=== PATIENT | male | born 1965 | race Caucasian/White ===

== ENCOUNTER 2022-08-08 16:31 | Emergency (ER) | payer OTHER, MEDICAID, SELFPAY ==
[2022-08-08 16:44] VITALS: BP 176/97; PULSE 88; RESP 20; TEMP 37; O2SAT 97; BMI 34.0
--- NOTE | 2022-08-08 18:15 | ED_ITS ---
HPI - Skin/Abscess/Foreign Bdy <Homero Muro PA-C - Last Filed: 08/08/22 19:25> General Chief complaint: Skin/Abscess/Foreign Body Stated complaint: something in neck gland, sick smell Time Seen by Provider: 08/08/22 17:34 Source: patient Mode of arrival: Ambulatory Limitations: no limitations History of Present Illness HPI narrative: This is a 56-year-old male presents emergency department due to a week history of a sore throat as well as a ?infected gland?. States that he smells some abnormal smells coming from his throat. Denies any difficulty breathing or swallowing. Denies any fevers, nausea, vomiting, or any other systemic symptoms. No other upper respiratory infectious symptoms. Related Data Home Medications Medication Instructions Recorded Confirmed . (No Home Medications) ##0 06/22/10 Previous Rx's Medication Instructions Recorded dexamethasone 4 mg tablet 4 mg PO DAILY #3 tabs 08/08/22 Allergies Allergy/AdvReac Type Severity Reaction Status Date / Time INGREDIENT: NKDA - NO KNOWN Allergy Unknown Uncoded 07/10/17 11:44 DRUG ALLERGIES Review of Systems <BROOKS Nieto Last Filed: 08/08/22 19:25> Review of Systems Narrative: GENERAL: Denies chills, fatigue, malaise, fever, sweats. HEENT: Sore throat, Denies sinus pain, ear pain,, difficulty swallowing, dizziness. RESPIRATORY: Denies dyspnea, cough, wheezing, hemoptysis, sputum. CARDIOVASCULAR: Denies chest pain, palpitations, orthopnea, edema, GASTROINTESTINAL: Denies nausea, vomiting, abdominal pain, diarrhea, constipation, melena. : Denies dysuria, frequency, incontinence, hematuria, urinary retention. MUSCULOSKELETAL: denies weakness, joint pain, or bony pain SKIN: Denies rash, skin lesions, or other NEUROLOGIC: Denies weakness, headache, numbness, change in speech, confusion, seizures, incoordination. PSYCHIATRIC: No concerning psychosocial issues. 12 point review of systems is negative except for those stated above Patient History <BROOKS Nieto Last Filed: 08/08/22 19:25> Social History Smoking Status: Former smoker Smoking Status: Former smoker Exam <BROOKS Nieto Last Filed: 08/08/22 19:25> Narrative Exam Narrative: GENERAL: Well-developed patient, in mild distress. HEAD: Atraumatic. Normocephalic. EYES: Pupils equal round and reactive. Extraocular motions intact. No scleral icterus. No injection or drainage. ENT: Nose without bleeding, purulent drainage. Erythematous posterior oropharynx, tonsillar exudate on right tonsil. Mild bilateral tonsillar edema. Uvula midline. NECK: Trachea midline. Non tender CARDIOVASCULAR: Regular rate and rhythm without murmurs, gallops, or rubs. RESPIRATORY: Clear to auscultation. Breath sounds equal bilaterally. No wheezes, rales, or rhonchi. GASTROINTESTINAL: Abdomen soft, non-tender, nondistended. EXTREMITIES: No edema or joint tenderness. BACK: Nontender without deformity or crepitance. No flank tenderness. NEURO: AOx3. SKIN: No rash or erythema of visible areas Initial Vital Signs Initial Vital Signs: Vital Signs Temperature 98.6 F 08/08/22 16:44 Pulse Rate 88 08/08/22 16:44 Respiratory Rate 20 08/08/22 16:44 Blood Pressure 176/97 H 08/08/22 16:44 Pulse Oximetry 97 08/08/22 16:44 Oxygen Delivery Method Room Air 08/08/22 16:44 <Silvio Ortega MD - Last Filed: 08/16/22 03:29> Initial Vital Signs Initial Vital Signs: Vital Signs Temperature 98.6 F 08/08/22 16:44 Pulse Rate 88 08/08/22 16:44 Respiratory Rate 20 08/08/22 16:44 Blood Pressure 176/97 H 08/08/22 16:44 Pulse Oximetry 97 08/08/22 16:44 Oxygen Delivery Method Room Air 08/08/22 16:44 Course <Homero Muro PA-C - Last Filed: 08/08/22 19:25> Orders Ordered: ED Orders 08/08/22 18:20 Strep Grp A by PCR Rapid Stat 08/08/22 18:49 Throat Culture Stat Vital Signs Vital signs: Vital Signs - 8 hr 08/08/22 16:44 Temperature 98.6 F Pulse Rate 88 Respiratory Rate 20 Blood Pressure 176/97 H Pulse Oximetry 97 Oxygen Delivery Method Room Air <Silvio Ortega MD - Last Filed: 08/16/22 03:29> Orders Ordered: ED Orders 08/08/22 18:20 Strep Grp A by PCR Rapid Stat 08/08/22 18:49 Throat Culture Stat Vital Signs Vital signs: Vital Signs - 8 hr 08/08/22 16:44 Temperature 98.6 F Pulse Rate 88 Respiratory Rate 20 Blood Pressure 176/97 H Pulse Oximetry 97 Oxygen Delivery Method Room Air MDM - Skin/Abscess/Foreign Bdy <Homero Muro PA-C - Last Filed: 08/08/22 19:25> Lab Data Labs: Lab Results 08/08/22 Range/Units 18:20 Group A Strep (PCR) Negative (Negative) MDM Narrative Medical decision making narrative: MDM * differential diagnosis includes but not limited to viral pharyngitis, bacterial pharyngitis, peritonsillar abscess * Prior records reviewed: Patient has not been here for similar complaints in the past. * My lab interpretation: Rapid strep negative * My imgaing interpretation: None obtained * Clinical Decision Rules/Scores evaluated: None * Independent discussions with: None ED Course: This is a 56-year-old male presents to the emergency department due to a ?infected gland?. On exam it appears he has a tonsillar exudate to the right tonsil which is what he was describing. Denies any difficulty breathing or swallowing. He is not had any systemic fevers or any other symptoms. Low concern for acute unilateral peritonsillar abscess. Rapid strep was negative. Due to the erythema and tonsillar exudate throat culture was also ordered. Will recommend symptomatic treatment and oral dexamethasone for symptomatic relief. Shared Decision Making: Discussed plan with the patient who is comfortable with the plan. Social Considerations: None Disposition: Discharged to home <Silvio Ortega MD - Last Filed: 08/16/22 03:29> Lab Data Labs: Lab Results 08/08/22 Range/Units 18:20 Group A Strep (PCR) Negative (Negative) Discharge Plan Departure Patient Disposition: Home Clinical Impression: Pharyngitis Activity Restrictions/Additional Instructions: Thank you for coming to the [facility] Emergency Department today. Your strep test was negative. We have also taken a culture which should grow any bacteria if this is a bacterial infection that would need treatment. You will be called with the culture results if they come back positive. Please take medication as prescribed as this may help with your symptoms. I also recommend Tylenol as needed for any discomfort or fevers as well as warm salt-water gargles. I sent your medications to [facility] in [place]. I hope you feel better soon. Prescriptions: New dexamethasone 4 mg tablet 4 mg PO DAILY Qty: 3 0RF No Action . (No Home Medications) Qty: 0 Referrals: Marie Garcia [employer] [Primary Care Provider] - Stand Alone Forms: Patient Portal/API <Silvio Ortega MD - Last Filed: 08/16/22 03:29> Cosign ED Attending Cosignature Attestation: I was immediately available in the department for consultation. ?This documentation has been reviewed and I agree with assessment and plan. Supervised by Silvio Ortega MD
[2022-08-08 18:42] LABS: Strep Grp A by PCR Rapid Negative (Negative)
[2022-08-08 19:20] VITALS: BP 154/94; PULSE 67; O2SAT 100
--- NOTE | 2022-08-08 19:28 | PC.NURSE ---
Pt states for the past 2 months hes noticed a lump on the R side of his neck and a terrible taste/smell coming from his throat. Pt states he has had an infection before that drained.
== END 2022-08-08 19:25 | disposition home or self-care (01) ==
PROVIDERS: Emergency Provider Physician Assistant Medical; PCP Nurse Practitioner Family
DX: J02.9 Acute pharyngitis, unspecified (principal); Z87.891 Personal history of nicotine dependence
CPT/HCPCS: 87070; 87651; 99282

== ENCOUNTER 2024-05-29 16:34 | Emergency (ER) | payer OTHER, SELFPAY ==
[2024-05-29 16:40] VITALS: BP 136/69; PULSE 74; RESP 15; TEMP 36.6; O2SAT 96; BMI 35.4
--- NOTE | 2024-05-29 17:07 | ED_ITS ---
HPI - URI/Sore Throat <Liyah Moran PA-C - Last Filed: 05/29/24 19:44> General Chief Complaint: Upper Respiratory Symptoms Stated Complaint: SOB, coughing x 21days Time Seen by Provider: 05/29/24 17:01 Source: patient Mode of arrival: Ambulatory History of Present Illness HPI Narrative: Mr. Rivera is a pleasant 58-year-old gentleman with a past medical history of hypertension, former smoker, cholecystectomy who presents to the emergency department with his grandson who is also checked in as a patient for cough x3 weeks. Patient reports that his grandson got him sick 3 weeks ago and he was having fever congestion sore throat at that time however all of the symptoms have improved but he continues to have an aggressive lingering cough. States his cough is starting to make his back left ribs extremely sore every time he coughs or presses on the area. States that he has a history of walking pneumonia. He denies chest pain, shortness of breath, abdominal pain, nausea, vomiting, diarrhea. No medications prior to arrival. Related Data Home Medications Medication Instructions Recorded Confirmed . (No Home Medications) ##0 06/22/10 Previous Rx's Medication Instructions Recorded dexamethasone 4 mg tablet 4 mg PO DAILY #3 tabs 08/08/22 benzonatate 200 mg capsule 200 mg PO BID-TID PRN cough #20 05/29/24 caps lidocaine 5 % topical patch 1 patch topical DAILY #15 ea 05/29/24 (Lidoderm) Allergies Allergy/AdvReac Type Severity Reaction Status Date / Time No Known Drug Allergies Allergy Verified 05/29/24 16:47 Review of Systems <Liyah Moran PA-C - Last Filed: 05/29/24 19:44> Review of Systems ROS Unobtainable: All systems reviewed & are unremarkable except as noted in HPI and below Patient History <Liyah Moran PA-C - Last Filed: 05/29/24 19:44> Social History Smoking Status: Former smoker Smoking Status: Former smoker Exam <Liyah Moran PA-C - Last Filed: 05/29/24 19:44> Narrative Exam Narrative: GENERAL: 58 year old patient appears stated age. Well-developed patient, in no acute distress. HEAD: Atraumatic. Normocephalic. EYES: No scleral icterus. No injection or drainage. ENT: Nose without bleeding, purulent drainage. Throat without erythema, tonsillar hypertrophy or exudate. Airway patent. NECK: Trachea midline. Cervical ROM intact. CARDIOVASCULAR: Regular rate and rhythm. RESPIRATORY: ?Frequent coarse cough. Nonlabored respirations. ?Speaking in clear, full sentences. ?Clear to auscultation. Breath sounds equal bilaterally. No wheezes, rales, or rhonchi. ? EXTREMITIES: No edema or joint tenderness. BACK: Tenderness to palpation of left lateral ribs. NEURO: AOx3. ?Clear speech. ?Moves all 4 extremities appropriately. SKIN: No rash or erythema of visible areas Initial Vital Signs Initial Vital Signs: Vital Signs Temperature 97.9 F 05/29/24 16:40 Pulse Rate 74 05/29/24 16:40 Respiratory Rate 15 05/29/24 16:40 Blood Pressure 136/69 05/29/24 16:40 Pulse Oximetry 96 05/29/24 16:40 Oxygen Delivery Method Room Air 05/29/24 16:40 <Fareed Whitmore MD - Last Filed: 05/30/24 05:00> Initial Vital Signs Initial Vital Signs: Vital Signs Temperature 97.9 F 05/29/24 16:40 Pulse Rate 74 05/29/24 16:40 Respiratory Rate 15 05/29/24 16:40 Blood Pressure 136/69 05/29/24 16:40 Pulse Oximetry 96 05/29/24 16:40 Oxygen Delivery Method Room Air 05/29/24 16:40 Course <Liyah Moran PA-C - Last Filed: 05/29/24 19:44> Orders Ordered: Discontinued Medications Acetaminophen (Acetaminophen 325 Mg Tablet) 975 mg PO NOW ONE Stop: 05/29/24 17:21 Last Admin: 05/29/24 17:34 Dose: 975 mg Documented By: ES Benzonatate (Benzonatate 100 Mg Capsule) 200 mg PO NOW ONE Stop: 05/29/24 17:21 Last Admin: 05/29/24 17:35 Dose: 200 mg Documented By: ES Ibuprofen (Ibuprofen 400 Mg Tablet) 400 mg PO NOW ONE Stop: 05/29/24 17:21 Last Admin: 05/29/24 17:34 Dose: 400 mg Documented By: ES Vital Signs Vital signs: Vital Signs - 8 hr 05/29/24 16:40 Temperature 97.9 F Pulse Rate 74 Respiratory Rate 15 Blood Pressure 136/69 Pulse Oximetry 96 Oxygen Delivery Method Room Air <Fareed Whitmore MD - Last Filed: 05/30/24 05:00> Orders Ordered: Discontinued Medications Acetaminophen (Acetaminophen 325 Mg Tablet) 975 mg PO NOW ONE Stop: 05/29/24 17:21 Last Admin: 05/29/24 17:34 Dose: 975 mg Documented By: ES Benzonatate (Benzonatate 100 Mg Capsule) 200 mg PO NOW ONE Stop: 05/29/24 17:21 Last Admin: 05/29/24 17:35 Dose: 200 mg Documented By: ES Ibuprofen (Ibuprofen 400 Mg Tablet) 400 mg PO NOW ONE Stop: 05/29/24 17:21 Last Admin: 05/29/24 17:34 Dose: 400 mg Documented By: ES Vital Signs Vital signs: Vital Signs - 8 hr 05/29/24 16:40 Temperature 97.9 F Pulse Rate 74 Respiratory Rate 15 Blood Pressure 136/69 Pulse Oximetry 96 Oxygen Delivery Method Room Air MDM - URI/Sore Throat <Liyah Moran PA-C - Last Filed: 05/29/24 19:44> Medical Records Attestation: I reviewed the patient's medical records. Lab Data Labs: Lab Results 05/29/24 Range/Units 17:35 SARS-CoV-2 (PCR) Negative (Negative) Influenza A (RT-PCR) Flu a negative (NEGATIVE) Influenza B (RT-PCR) Flu b negative (NEGATIVE) RSV (PCR) Negative (Negative) Imaging Data Chest x-ray: Radiologist's Impression: PROCEDURE: XR CHEST 2V INDICATIONS: cough 2 weeks TECHNIQUE: 2 views of the chest were acquired. COMPARISON: None. FINDINGS AND IMPRESSION: Low lung volumes. Lungs are clear. No pleural effusions. Heart size is at the upper limit of normal. Unremarkable osseous structures. MDM Narrative Medical decision making narrative: 58-year-old gentleman with a past medical history of hypertension, former smoker, cholecystectomy who presents to the emergency department with his grandson who is also checked in as a patient for cough x3 weeks. Differential diagnosis includes but isn't limited to post viral cough, viral syndrome, bronchitis, pneumonia, costochondritis, etc. On exam the patient is in no acute distress, nontoxic-appearing, all vital signs within normal limits. He is aggressive cough that has been going on for 3 weeks, causing him to now have soreness in his ribs, and cough is not getting better despite all of his other symptoms resolving. He is with his grandson who is a patient for the similar symptoms. We will proceed with chest x-ray, viral swab, benzonatate ibuprofen and acetaminophen. Chest x-ray negative for pneumonia. Recommended supportive care with benzonatat e, rest, hydration, acetaminophen. Also recommended humidifier and prompt follow up with PCP for further evaluation. Discussed strict ED return precautions. Patient verbalized understanding of all information agreeable with the plan. He is stable for discharge home. <Fareed Whitmore MD - Last Filed: 05/30/24 05:00> Lab Data Labs: Lab Results 05/29/24 Range/Units 17:35 SARS-CoV-2 (PCR) Negative (Negative) Influenza A (RT-PCR) Flu a negative (NEGATIVE) Influenza B (RT-PCR) Flu b negative (NEGATIVE) RSV (PCR) Negative (Negative) MDM Narrative Medical decision making narrative: 58-year-old gentleman with a past medical history of hypertension, former smoker, cholecystectomy who presents to the emergency department with his grandson who is also checked in as a patient for cough x3 weeks. Differential diagnosis includes but isn't limited to post viral cough, viral syndrome, bronchitis, pneumonia, costochondritis, etc. On exam the patient is in no acute distress, nontoxic-appearing, all vital signs within normal limits. He is aggressive cough that has been going on for 3 weeks, causing him to now have soreness in his ribs, and cough is not getting better despite all of his other symptoms resolving. He is with his grandson who is a patient for the similar symptoms. We will proceed with chest x-ray, viral swab, benzonatate ibuprofen and acetaminophen. Chest x-ray negative for pneumonia. Recommended supportive care with benzonatate, rest, hydration, acetaminophen. Also recommended humidifier and prompt follow up with PCP for further evaluation. Discussed strict ED return precautions. Patient verbalized understanding of all information agreeable with the plan. He is stable for discharge home. I was available for consultation while this patient was in the emergency department however I was not consulted for any part of this patient's care, medical decision-making re-evaluation. Fareed Whitmore Discharge Plan Departure Patient Disposition: Home Clinical Impression: Subacute cough Instructions: DI for Cough -- Adult Activity Restrictions/Additional Instructions: Dear Mr. Rivera, Thank you for coming to the emergency department. Today you were evaluated for left-sided rib pain and cough. Your chest x-ray does not reveal any pneumonia or bone fracture. I prescribed you cough medicine to use as needed. Please rest, hydrate, drink warm tea with honey, use acetaminophen or topical numbing patches to help with the pain, and follow up with the primary care doctor. Please return to the emergency department if you develop any new or worsening symptoms, severe pain, shortness of breath persistent fevers or other concerns. Please follow up with your primary care doctor within the next 2-3 days for ER follow-up. (If you do not have a PCP you can call [phone]. ?to schedule an appointment with an [facility] Primary Care Provider) IF YOU DEVELOP ANY NEW OR WORSENING SYMPTOMS, RETURN TO THE ER! Please read the attached instructions, they highlight more specific treatments and interventions for you at home. Thank you for letting me participate in your care, Liyah Moran PA-C Prescriptions: New benzonatate 200 mg capsule 200 mg PO BID-TID PRN (Reason: cough) Qty: 20 0RF lidocaine [Lidoderm] 5 % adhesive patch,medicated 1 patch topical DAILY Qty: 15 0RF Rx Instructions: leave on most painful area for up to 12 hrs No Action . (No Home Medications) Qty: 0 dexamethasone 4 mg tablet 4 mg PO DAILY Qty: 3 0RF Referrals: Marie Garcia ARNP [Primary Care Provider] - Stand Alone Forms: Patient Portal/API/Survey
--- NOTE | 2024-05-29 17:20 | DI.RAD.S_ITS ---
PROCEDURE: XR CHEST 2V INDICATIONS: cough 2 weeks TECHNIQUE: 2 views of the chest were acquired. COMPARISON: None. FINDINGS AND IMPRESSION: Low lung volumes. Lungs are clear. No pleural effusions. Heart size is at the upper limit of normal. Unremarkable osseous structures. Dictated by: Maged Finch M.D. on 05/29/2024 at 18:08 Approved by: Maged Finch M.D. on 05/29/2024 at 18:09
[2024-05-29] MEDS: ACETAMINOPHEN 325 MG TABLET 975 MG PO (17:34)
[2024-05-29] MEDS: IBUPROFEN 400 MG TABLET PO (17:34)
[2024-05-29] MEDS: BENZONATATE 100 MG CAPSULE 200 MG PO (17:35)
[2024-05-29 18:23] LABS: Influenza A - CEPHEID Flu A NEGATIVE (NEGATIVE); Influenza B - CEPHEID Flu B NEGATIVE (NEGATIVE); Respiratory Syncytial Virus Negative (Negative)
[2024-05-29 18:28] LABS: COVID-19 CEPHEID 4-PLEX PCR Negative (Negative)
== END 2024-05-29 19:17 | disposition home or self-care (01) ==
PROVIDERS: Emergency Provider Physician Assistant; PCP Nurse Practitioner Family
DX: R05.2 Subacute cough (principal); R50.9 Fever, unspecified; Z87.891 Personal history of nicotine dependence
CPT/HCPCS: 0241U; 71046; 99283

== ENCOUNTER → 2024-07-27 08:54 | Outpatient (CLI) | payer OTHER, SELFPAY ==
--- NOTE | 2024-07-27 08:56 | DI.ECHO.S_ITS ---
[facility] +---------+ Hospital : : [id number] : : [place] : : [id number] : : Phone: [phone] Echocardiogram Report + + :Name: BASIA MEREDITH Study Date: 07/27/2024 Height: 69 in : :Hospital ReadingLocation: Weight: 238 lb : : Gender: Male BSA: 2.2 m2 : :: 1965 Age: 58 yrs BP: 134/86 mmHg: :Reason For Study: HYPERTENSION, MURMUR : :Ordering Physician: SHRUTHI, : :SHANI Performed By: Faina Benjamin : :Referring: SHANI BAZAN : + + Interpretation Summary 1) Normal left ventricular thickness, size, wall motion, and systolic function (EF 60-65%). 2) Normal right ventricular size and function. 3) No significant valvular abnormalities. 4) No prior Echo available for comparison. Procedure: A two-dimensional transthoracic echocardiogram with color flow and Doppler was performed. The study quality was technically adequate. There is no prior echocardiogram noted for this patient. The patient was in sinus bradycardia with heart rates between 60-68 bpm during the exam. Left Ventricle: The left ventricle is normal in size and wall thickness. The ejection fraction is estimated to be 60-65%. Left ventricular systolic function appears normal without focal wall motion abnormalities. Right Ventricle: The right ventricle is normal in size and function. Atria: The left atrial size is normal. Right atrial size is normal. There is no Doppler evidence for an interatrial shunt. Mitral Valve: The mitral valve leaflets appear to open well. There is trace mitral regurgitation. Aortic Valve: The aortic valve is trileaflet. The aortic valve opens well. There is no aortic valve stenosis. No aortic regurgitation is present. Tricuspid Valve: The tricuspid valve leaflets are thin and pliable. There is mild tricuspid regurgitation. The right ventricular systolic pressure is estimated to be at least 26 mmHg based on an estimated right atrial pressure of 3 mm Hg. Pulmonic Valve: The pulmonic valve is not well visualized. There is no pulmonic valvular regurgitation. Great Vessels: The aortic root is normal size. The ascending aorta is mildly enlarged. The IVC is of normal diameter and collapses greater than 50% with a sniff. This suggests a low right atrial pressure of 3 mm Hg. Pericardium/ Pleura There is no pericardial effusion. There is no pleural effusion. MMode/2D Measurements & Calculations LVIDd: 5.2 cm LVOT diam: 2.1 cm LVIDs: 3.2 cm Ao root diam: 3.3 cm FS: 37.7 % asc Aorta Diam: 3.9 cm IVSd: 1.00 cm LVPWd: 0.97 cm LV mendez. diameter/BSA (cm/m^2): 2.3 LV sys. diameter/BSA (cm/m^2): 1.4 LA A2 area: 23.0 cm2 RA long axis: 6.2 cm LA A4 area: 22.4 cm2 RA area: 21.2 cm2 LA length (vol): 6.2 cm RA vol: 61.3 ml LA vol: 70.5 ml RA : 27.5 ml/m2 LA vol index: 31.7 ml/m2 IVC diam: 1.9 cm RVD1 (basal): 4.0 cm RVD2 (mid): 3.3 cm TAPSE: 1.8 cm Doppler Measurements & Calculations Ao V2 max: 181.5 cm/sec LVOT Max Jonathan: 118.6 cm/sec Ao V2 mean: 118.3 cm/sec LV V1 max P.6 mmHg Ao max P.1 mmHg LV V1 VTI: 27.4 cm Ao mean P.6 mmHg ADRIANO(I,D): 2.6 cm2 Ao V2 VTI: 37.4 cm ADRIANO(V,D): 2.3 cm2 sev ratio: 0.73 ADRIANO indexed to BSA (cm^2/m^2): 1.2 MV E max jonathan: 98.5 cm/sec TR max jonathan: 239.1 cm/sec MV A max jonathan: 86.0 cm/sec TR max P.9 mmHg MV E/A: 1.1 PA V2 max: 110.2 cm/sec Med Peak E' Jonathan: 7.5 cm/sec PA V2 mean: 74.8 cm/sec E/E' med: 13.1 PA mean P.6 mmHg Lat Peak E' Jonathan: 13.2 cm/sec PA pr(Accel): 24.2 mmHg E/E' lat: 7.4 E/e' average: 10.3 MV dec time: 0.20 sec SV(LVOT): 98.3 ml Reading Physician:01:11 PM
== END ==
PROVIDERS: PCP Nurse Practitioner Family; Referring Provider Internal Medicine Cardiovascular Disease; Visit Provider Internal Medicine Cardiovascular Disease
DX: I07.1 Rheumatic tricuspid insufficiency (principal); I10 Essential (primary) hypertension; R01.1 Cardiac murmur, unspecified; I77.89 Other specified disorders of arteries and arterioles
CPT/HCPCS: 93306